=== PATIENT | female | born 1940 | race Caucasian/White ===

== ENCOUNTER → 2021-10-24 | Outpatient (CLI) | payer MEDICARE | LOC: HEART 5 16:04 | DX: R05.9 Cough, unspecified (principal) | CPT/HCPCS: 94060; 94729 ==

== ENCOUNTER → 2021-11-12 | Outpatient (CLI) | payer MEDICARE | LOC: EXRD 13:00 | DX: R05.9 Cough, unspecified (principal) | CPT/HCPCS: 71046 ==